=== PATIENT | female | born 1955 | race African-American/Black ===

== ENCOUNTER 2021-07-26 22:56 | Emergency (ER) | payer MEDICAID ==
[~2021-07-26] VITALS: Ht 167.6 cm; Wt 114.0 kg
[~2021-07-26 22:56] MED LIST: ALBU18HF2 IH; AMLO5TAB88 PO; ASPI-1497 PO; ATOR10TA69 PO; DOCU-138 PO; GABA-532 PO; HIBIL TOP; ISOS20TA57 PO; LOSA50TA3 PO; METF-414 PO; MULT-1146 MT; NICO-681 TD
[2021-07-26] MEDS ORDERED: IBUPROFEN 600MG TABLET PO ONE (23:45)
[2021-07-26 23:54] VITALS: BP 166/84
[2021-07-27] MEDS ORDERED: METHOCARBAMOL 750MG TABLET PO SCH
[2021-07-27 00:01] LABS: CLARITY URINE CLEAR (CLEAR); COLOR URINE YELLOW (YELLOW); KETONES URINE TRACE (NEGATIVE); LEUKOCYTE ESTERASE URINE TRACE (NEGATIVE); NITRITE URINE NEGATIVE (NEGATIVE); OCCULT BLOOD URINE NEGATIVE (NEGATIVE); PROTEIN URINE NEGATIVE (NEGATIVE); SPECIFIC GRAVITY URINE 1.025 (1.005-1.030)
[2021-07-27] MEDS ORDERED: IBUP-2029 MT (01:37)
[2021-07-27] MEDS ORDERED: METH-653 MT (01:37)
[2021-07-27] MEDS ORDERED: SULF1TAB48 MT (01:37)
== END 2021-07-27 01:50 | disposition home or self-care (01) ==
LOC: ER 23:59
DX: M54.9 Dorsalgia, unspecified (principal); J44.9 Chronic obstructive pulmonary disease, unspecified; E11.9 Type 2 diabetes mellitus without complications; I10 Essential (primary) hypertension; Z88.5 Allergy status to narcotic agent; Z79.82 Long term (current) use of aspirin; Z98.890 Other specified postprocedural states
CPT/HCPCS: 81003; 99283

== ENCOUNTER 2021-07-30 12:12 | Emergency (ER) | payer MEDICAID ==
[~2021-07-30] VITALS: Ht 172.7 cm; Wt 101.0 kg
[~2021-07-30 12:12] MED LIST changes: +IBUP-2029 MT; +METH-653 MT; +SULF1TAB48 MT
[2021-07-30 12:13] VITALS: BP 150/88
== END 2021-07-30 16:07 | disposition left against medical advice (07) ==
LOC: ER 12:16
DX: M54.9 Dorsalgia, unspecified (principal); Z53.21 Procedure and treatment not carried out due to patient leaving prior to being seen by health care provider